=== PATIENT | male | born 1960 | race Caucasian/White ===

== ENCOUNTER 2018-07-27 11:43 | Day surgery (SDC) | payer MEDICAID, SELFPAY ==
[2018-07-27] VITALS (9 sets, daily range): BP systolic 134–174; BP diastolic 88–97; PULSE 69–85; RESP 16; TEMP 36.3–37.2; O2SAT 93–98; BMI 19.5
--- NOTE | 2018-07-27 11:49 | EKG12_ITS ---
Test Reason : PREOP Blood Pressure : / mmHG Vent. Rate : 071 BPM Atrial Rate : 071 BPM P-R Int : 158 ms QRS Dur : 094 ms QT Int : 372 ms P-R-T Axes : 075 086 058 degrees QTc Int : 404 ms Normal sinus rhythm Normal ECG No previous ECGs available Confirmed by ANA QIU, VENTURA ([id number]), news copy editor CARLOS ALBERTO NEW ([id number]) on 07/31/2018 2:15:31 PM Referred By: Saba Herron Confirmed By:VENTURA PEREZ MD
[2018-07-27 12:13] LABS: Hematocrit 45.2 % (40-54); Hemoglobin 15.2 g/dl (13.0-16.5); Mean Corp Hgb Conc 33.6 g/gl (32-36); Mean Corpuscular Hgb 31.3 pg (27.0-32.0); Mean Corpuscular Volume 93.2 fL (80-94); Mean Platelet Vol. 9.7 fl (6.2-12.0); Platelet Count 211 K/mm3 (150-450); RBC Distribution Width SD 44.1 fl (35.1-43.9); Red Blood Count 4.85 M/mm3 (4.6-6.2); White Blood Count 11.3 K/mm3 (4.4-11.0)
[2018-07-27 12:21] LABS: Scan Indicated on CBC? Y/N NO
--- NOTE | 2018-07-27 13:10 | TESH_PTH ---
PATIENT: KATIA SOUZA LOC: [facility] – [place] U#:[id number] AGE/SX: 58/M ROOM: RE07/27/[address]: Dr. Saba Herron DO : 1960 BED: DIS: 07/27/2018 SPEC #: [id number] RECD: 07/27/18 15:49 STATUS: CHUCKY SHALOM #: [id number] SCARLET: 07/27/18 13:[address]: Saba Herron DEPT: SURGICAL PATHOLOGY RECD BY: Claudia Hartley ENTERED: 07/28/18 10:08 SP TYPE: TENDON OTHR DR: No Primary Care Phys Tissues: Tendon and tendon sheath, NOS Procedures: Surgery Specimen Level III HEADER OPERATION: Arthroscopy, shoulder, subacromial decompression/acromioplasty PRE-OP DIAGNOSIS: Rotator cuff tear; bicep tendinosis TISSUE SUBMITTED: Portion of bicep tendon MICROSCOPIC DIAGNOSIS Portion of biceps tendon, biopsy: Tendon with degenerative and reparative change. AM:darrin 07/29/18 MICROSCOPIC DESCRIPTION Slides are reviewed. GROSS DESCRIPTION Received in fixative is one container labeled with the patient's name and designated portion of bicep tendon. The specimen consists of a piece of tendinous tissue measuring 6 x 0.4 x 0.2 cm. The specimen is sectioned and submitted entirely in one cassette. / SJ:darrin 07/28/18 TC:5 CPT: 22218
[2018-07-27] MEDS: Cefazolin 2 GM in 0.9% Normal Saline 100 ML IV (13:53)
[2018-07-27] MEDS: Mupirocin Ointment 22gm Tube 1 APPLIC (14:36)
--- NOTE | 2018-07-27 14:56 | DCINST_ITS ---
Discharge Diet: No Restrictions - sling at all times unless showering, do not actively flex elbow, may move shoulder and hand as tolerated, remove dressing in 4 days and apply bandaids to incision sites and get incision wet at that time Discharge Activity: May Not Drive May shower in (days): 1 Ice area for (Minutes): 20 - Every hour while awake. Weight Bearing Status: Weight bearing as tolerated Keep extremity elevated above heart level: Operative Extremity Call your doctor if your incision/area has: Continuous Slow Oozing, Sudden Increased Bleeding, Increased Pain/ Swelling, Increased Redness, Foul Smelling Discharge Call your doctor if you observe: Fever of 101 or Higher, Coldness, Increased Pain, Numbness or Tingling, Change in Color, Calf discomfort Allergies/Adverse Reactions: Allergies NSAIDS (Non-Steroidal Anti-Inflamma Allergy (Verified 07/17/18 16:10) Other PT HAS 1 KIDNEY STEROID Allergy (Uncoded 07/17/18 16:10) Other PT HAS 1 KIDNEY Medications to take at Discharge Hydrocodone Bitart/Apap 5-325 [[place] 5MG-325MG] 1 - 2 tablet PO Q6H PRN PRN 5 Days #40 tablet 07/27/18 Zolpidem Tartrate [Ambien (Generic)] 5 mg PO QHS PRN PRN #14 tablet 07/27/18 The following prescriptions were given: Hydrocodone Bitart/Apap 5-325 [[place] 5MG-325MG] 1 - 2 tablet PO Q6H PRN PRN 5 Days #40 tablet PRN Reason: Pain Zolpidem Tartrate [Ambien (Generic)] 5 mg PO QHS PRN PRN #14 tablet PRN Reason: Insomnia Primary Care Physician: Care Physician,No Primary [Primary Care Provider] - Test Results: Test results from this visit will be discussed in further detail at your follow- up appointment, if applicable. Please Follow Up With: Saba Herron, DO - [phone]
--- NOTE | 2018-07-27 14:56 | PCM.OPRPT ---
Report of Operation Date of Procedure: 07/27/18 Pre-Operative Diagnosis: right shoulder rotator cuff tendinosis, biceps tendinosis, subacromial impingement Post-Operative Diagnosis: same, partial leading edge rc tear Surgery/Procedure Performed:: sars, rc debridement, subacromial decompression/acromioplasty, open biceps tenodesis station tender: Landon Sandoval Type of Anesthesia:: General/Regional Anesthesiologist: Bar Amin Specimen's removed: biceps tendon Estimated Blood Loss (mL): minimal Fluids Replaced: 1000ml lr Description of Procedure: Preoperative note Patient is a 58-year-old male who is had continued right shoulder pain failed conservative treatment MRI confirms a partial rotator cuff tear subacromial bursitis. Wrist benefits alternatives surgery discussed with patient. Risks include but not limited to blood loss, blood clot, infection, neurovascular, failure procedure, loss of life and loss of limb. Patient is aware like proceed with right shoulder arthroscopy repair is indicated. Operative note next Patient seen and examined preoperative holding area. Right shoulder was marked. Patient brought to the operating room placed supine on the operating table. Signing, anesthesia, antibiotics were administered. Patient was placed in beachchair positioning [facility] through we did recheck her blood his blood pressure which was stable throughout.The right shoulder was prepped and draped in usual sterile fashion. We marked out our bony landmarks for portal placement and insufflated the glenohumeral joint from the posterior aspect. We had good return from a posterior 18-gauge needle was then made a posterior portal with an 11 blade. Begin our diagnostic arthroscopy. Created an anterior portal under direct visualization. We then were able to pull the biceps into the joint was hyperemic and thickened especially in the intra-tubercle groove area. Is also unstable at the biceps labral junction. We then released the biceps at the biceps labral junction and debrided back the unstable room at the labrum. The subscap was probed and noted to be stable and intact. There were no loose bodies in the recess. The rotator cuff was intact there was a small leading edge partial-thickness tear that was gently debrided back with a shaver. We then moved to the subacromial space we created a lateral portal under direct visualization. There was extensive bursitis laterally and posteriorly which is where he had most of his pain. We then resected this back with combination of a shaver and a burner. He also had a little bit of a hook to his lateral edge of his acromion which was resected back with her currently acromial plasty with a bur. Again we completed our resection of his bursa tissue. Irrigated the shoulder with copious amounts sterile saline and then moved to our open biceps tenodesis. We reprepped the area we used our pec to determine our starting point for our tenodesis. We used we waited the allotted time use a 15 blade to cut the skin tenotomies to dissect down to level the biceps tendon the biceps tendon was then brought out of the incision was then truncated to appropriate length and the biceps tendon was truncated was sent to pathology for further evaluation. We then used an ablator to ablate the periosteum inside of our Arthrex pec button insertion. We drilled unicortical he we whipstitched the end of the biceps tendon placed the free ends of the suture through the pec button in standard technique then placed the button into the humeral shaft flipped the button and then sewed the tendon down the periosteum with a free needle. The incision was then irrigated with copious amounts of sterile saline. The incision was closed with interrupted 3-0 Vicryl in a running 4-0 Monocryl in the portals were closed with interrupted nylon stitches. Patient was transferred to recovery room there is no comp occasions patient was stable. Postoperative note Pharmacy has prescriptions Encourage patient to quit smoking next Sling at all times please do not use elbow to flex or extend patient you may use shoulder and hand Call with increased pain numbness tingling or further issues arise Follow-up in 2 weeks from today with either matter myself next Call again with concerns Dragon disclaimer this note was generated with [employer] dictation software. It may contain incorrect words, spelling, and punctuation that were not noted in checking the note before signing.
--- NOTE | 2018-07-27 15:04 | OP.PCM_ITS ---
Report of Operation Date of Procedure: 07/27/18 Pre-Operative Diagnosis: right shoulder rotator cuff tendinosis, biceps te ndinosis, subacromial impingement Post-Operative Diagnosis: same, partial leading edge rc tear Surgery/Procedure Performed:: sars, rc debridement, subacromial decompression/acromioplasty, open biceps tenodesis laundry folder: Landon Sandoval Type of Anesthesia:: General/Regional Anesthesiologist: Bar Amin Specimen's removed: biceps tendon Estimated Blood Loss (mL): minimal Fluids Replaced: 1000ml lr Description of Procedure: Preoperative note Patient is a 58-year-old male who is had continued right shoulder pain failed conservative treatment MRI confirms a partial rotator cuff tear subacromial bursitis. Wrist benefits alternatives surgery discussed with patient. Risks include but not limited to blood loss, blood clot, infection, neurovascular, failure procedure, loss of life and loss of limb. Patient is aware like proceed with right shoulder arthroscopy repair is indicated. Operative note next Patient seen and examined preoperative holding area. Right shoulder was marked. Patient brought to the operating room placed supine on the operating table. Signing, anesthesia, antibiotics were administered. Patient was placed in beachchair positioning [facility] through we did recheck her blood his blood pressure which was stable throughout.The right shoulder was prepped and draped in usual sterile fashion. We marked out our bony landmarks for portal placement and insufflated the glenohumeral joint from the posterior aspect. We had good return from a posterior 18-gauge needle was then made a posterior portal with an 11 blade. Begin our diagnostic arthroscopy. Created an anterior portal under direct visualization. We then were able to pull the biceps into the joint was hyperemic and thickened especially in the intra-tubercle groove area. Is also unstable at the biceps labral junction. We then released the biceps at the biceps labral junction and debrided back the unstable room at the labrum. The subscap was probed and noted to be stable and intact. There were no loose bodies in the recess. The rotator cuff was intact there was a small leading edge partial-thickness tear that was gently debrided back with a shaver. We the n moved to the subacromial space we created a lateral portal under direct visualization. There was extensive bursitis laterally and posteriorly which is where he had most of his pain. We then resected this back with combination of a shaver and a burner. He also had a little bit of a hook to his lateral edge of his acromion which was resected back with her currently acromial plasty with a bur. Again we completed our resection of his bursa tissue. Irrigated the shoulder with copious amounts sterile saline and then moved to our open biceps tenodesis. We reprepped the area we used our pec to determine our starting point for our tenodesis. We used we waited the allotted time use a 15 blade to cut the skin tenotomies to dissect down to level the biceps tendon the biceps tendon was then brought out of the incision was then truncated to appropriate length and the biceps tendon was truncated was sent to pathology for further evaluation. We then used an ablator to ablate the periosteum inside of our Arthrex pec button insertion. We drilled unicortical he we whipstitched the end of the biceps tendon placed the free ends of the suture through the pec button in standard technique then placed the button into the humeral shaft flipped the button and then sewed the tendon down the periosteum with a free needle. The incision was then irrigated with copious amounts of sterile saline. The incision was closed with interrupted 3-0 Vicryl in a running 4-0 Monocryl in the portals were closed with interrupted nylon stitches. Patient was transferred to recovery room there is no comp occasions patient was stable. Postoperative note Pharmacy has prescriptions Encourage patient to quit smoking next Sling at all times please do not use elbow to flex or extend patient you may use shoulder and hand Call with increased pain numbness tingling or further issues arise Follow-up in 2 weeks from today with either matter myself next Call again with concerns Dragon disclaimer this note was generated with [employer] dictation software. It may contain incorrect words, spelling, and punctuation that were not noted in checking the note before signing.
== END 2018-07-27 17:32 | disposition home or self-care (01) ==
LOC: SDC 11:44 → AC 11:46
PROVIDERS: Anesthesiology; Referring Provider Orthopaedic Surgery; Visit Provider Orthopaedic Surgery
PROC: (CPT 29827; principal; 2018-07-27 12:50)
DX: M75.101 Unspecified rotator cuff tear or rupture of right shoulder, not specified as traumatic (principal); M75.51 Bursitis of right shoulder; M75.41 Impingement syndrome of right shoulder; F32.9 Major depressive disorder, single episode, unspecified; F17.200 Nicotine dependence, unspecified, uncomplicated; Z86.718 Personal history of other venous thrombosis and embolism; Z85.528 Personal history of other malignant neoplasm of kidney; Z90.5 Acquired absence of kidney
CPT/HCPCS: 01630; 23430; 29823; 64415; 36415; 85027; 88304; 93005; J7120; J2405

== ENCOUNTER → 2021-01-08 09:48 | Outpatient (CLI) | payer OTHER, SELFPAY ==
[2018-12-14 09:12] VITALS: BMI 19.5
--- NOTE | 2021-01-08 09:57 | RAD_ITS ---
STUDY: X-RAY - PELVIS AND RIGHT HIP REASON FOR EXAM: Male, 60 years old. Acute pain TECHNIQUE: 3 views of the pelvis and hip. COMPARISON: None. FINDINGS: There is a non-specific bowel gas pattern. Normal visualized soft tissue structures. Normal bilateral iliac wings, sacroiliac joints and visualized sacrum. Old right superior and inferior pubic rami fractures, normal left superior and inferior pubic rami. Normal pubic symphysis. Normal bilateral ischial tuberosities. Normal visualized femoral head. Normal acetabulum. There is mild articular joint space narrowing of the hip. RAD/HIP, UNI W/ Pelvis 2-3 Views IMPRESSION: Mild hip and SI joint arthrosis, no demonstrated acute fracture Old healed right superior and inferior pubic rami fractures Electronically Signed: Demetris Brooks MD at 16:24 EDT , Service support ,
== END ==
PROVIDERS: Referring Provider Anesthesiology Pain Medicine; Visit Provider Anesthesiology Pain Medicine
DX: M76.11 Psoas tendinitis, right hip (principal); S32.591A Other specified fracture of right pubis, initial encounter for closed fracture; S32.10XA Unspecified fracture of sacrum, initial encounter for closed fracture
CPT/HCPCS: 73502